=== PATIENT | female | born 1945 | race Caucasian/White ===

== ENCOUNTER → 2016-08-31 | Outpatient (CLI) | payer MEDICARE ==
[2016-08-31 11:36] LABS: Non-African American GFR(MDRD) >60 (>60 ml/min/1.73 sqM)
== END ==
LOC: LABWHC1 10:41
PROVIDERS: ATTEND Internal Medicine
DX: E27.8 Other specified disorders of adrenal gland (principal)
CPT/HCPCS: 36415; 82565

== ENCOUNTER → 2016-09-08 | Outpatient (CLI) | payer MEDICARE ==
--- NOTE | 2016-09-08 09:25 | CT ---
EXAMINATION TYPE: CT abdomen wo con DATE OF EXAM: 09/08/2016 8:35 AM COMPARISON: 11/10/2011 HISTORY: 70-year-old female adrenal nodule TECHNIQUE: Contiguous axial scanning of the abdomen without IV contrast. Coronal and sagittal reconst ructions performed. CT DLP: 564.5 mGycm Automated exposure control for dose reduction was used. FINDINGS: The heart is normal size without pericardial effusion. Some strandy atelectasis at the peripheral lef t base. No pleural effusion. Tiny hiatal hernia. Noncontrast appearance of the liver, left adrenal gland, right kidney, spleen, and pancreas show no g ross abnormality. Cholecystectomy clips. Stable small 5 mm fat density lesion posterior mid left kidney suggestive of a small AML rate Redemonstrated 1.5 cm nodule within the right adrenal gland. While this has minimally enlarged from 1 .2 cm on 11/10/2011, and shows density of -8 Hounsfield units compatible with a benign lipid rich adre nal adenoma. Mild apical scarring calcifications within the abdominal aorta. No mesenteric or retroperitoneal lymphadenopathy. No dilated small bowel, free fluid, or free air. No rmal appendix. Mild to moderate stool within the right hemicolon without pericolonic inflammatory jose nge. 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 No osseous destructive process. IMPRESSION: THE RIGHT ADRENAL GLAND NODULE HAS ENLARGED SLIGHTLY FROM 11/10/2011 MEASURING 1.5 CM VERSUS 1.2 CM, P REVIOUSLY. HOWEVER, IT SHOWS A DENSITY OF NEGATIVE 8 HOUNSFIELD UNITS IN KEEPING WITH A BENIGN LIPID RICH ADRENAL ADENOMA.
== END | disposition home or self-care (01) ==
LOC: RADCTMAIN 08:10
PROVIDERS: ATTEND Internal Medicine
DX: E27.8 Other specified disorders of adrenal gland (principal)
CPT/HCPCS: 74150

== ENCOUNTER → 2016-12-21 | Outpatient (CLI) | payer MEDICARE ==
--- NOTE | 2016-12-22 06:40 | BD ---
EXAMINATION TYPE: MG DEXA axial skeleton. DATE OF EXAM: 12/21/2016 COMPARISON: NONE CLINICAL HISTORY: Postmenopausal female. Screening. Height: 64 Weight: 220.5 FRAX RISK QUESTIONS: Alcohol (3 or more units per day): no Family History (Parent hip fracture): no Glucocorticoids (More than 3mos): no (Ex: prednisone, prednisolone, methylprednisolone, dexamethasone, and hydrocortisone). History of Fracture in Adulthood: no Secondary Osteoporosis: 1. Type 1 Diabetes: no 2. Hyperthyroidism: no 3. Menopause before 45: no 4. Malnutrition: no 5. Chronic liver disease: no Rheumatoid Arthritis: no Current Tobacco Use: no RISK FACTORS HISTORY OF: Hip Fracture (Right/Left): no Spine Fracture: no History of Wrist Fracture: no Surgery to Spine/Hip(right/left)/Wrist (right/left): no Family History of Osteoporosis: Active: no Diet low in dairy products/other sources of calcium: no Postmenopausal woman: age 50 Lost more than 2 inches in height since high school: no Frequent falls: no Poor Health: no Hyperparathyroidism: no Adrenal Insufficiency: no MEDICATIONS: heart meds, cholesterol meds, water pill, blood pressure meds, vit d, b12 , water pill x anax, gout pill Additional History: EXAM MEASUREMENTS: Bone mineral densitometry was performed using the [employer] System. Bone mineral density as measured about the Lumbar spine is: ----- L1-L4(G/cm2): 1.297 T Score Values are as follows: ----- L2: 0.7 ----- L3: 1.7 ----- L4: 1.1 ----- L1-L4: 1.0 Bone mineral density has baseline Bone mineral density about the R hip (g/cm2): 1.084 Bone mineral density about the L hip (g/cm2): 1.071 T Score values are as follows: -----R Neck: 0.3 -----L Neck: 0.2 -----R Total: 0.8 -----L Total: 0.9 Bone mineral density baseline IMPRESSION: Normal (Values between +1 and -1 indicate normal bone mass). Consider repeating this study in 5 year s or sooner if there is some new clinical indication. NOTE: T-SCORE=SD OF THE YOUNG ADULT MEAN.
--- NOTE | 2016-12-22 14:54 | MM ---
Reason for exam: screening (asymptomatic). Last mammogram was performed 1 year and 6 months ago. History: Patient is postmenopausal. Family history of breast cancer in mother at age 60. Physical Findings: A clinical breast exam by your physician is recommended on an annual basis and results should be correlated with mammographic findings. MG Screening Mammo w CAD Bilateral CC and MLO view(s) were taken. Prior study comparison: June 26, 2015, right breast MG 3d diag mammo w/cad RT. December 16, 2014, bilateral MG screening mammo w CAD. The breast tissue is almost entirely fat. Finding: There is a 5 mm high density, circumscribed round mass located 6 cm from the nipple in the right breast, more apparent on exam. There is a chronic nodularity in the right breast, stable. New finding since June 26, 2015 and December 16, 2014. ASSESSMENT: Incomplete: need additional imaging evaluation, BI-RAD 0 RECOMMENDATION: Special view mammogram of the right breast. If lesion persists on supplemental views, image directed ultrasound is recommended. [facility] will attempt to contact patient to return for supplemental views and ultrasound if indicated.
== END | disposition home or self-care (01) ==
LOC: RADMAMWWP 08:54
PROVIDERS: ATTEND Internal Medicine
DX: Z12.31 Encounter for screening mammogram for malignant neoplasm of breast (principal); R92.2 Inconclusive mammogram
CPT/HCPCS: 77080; G0202

== ENCOUNTER → 2016-12-30 | Outpatient (CLI) | payer MEDICARE ==
--- NOTE | 2017-01-02 07:29 | MM ---
Reason for exam: additional evaluation requested from abnormal screening. Last mammogram was performed less than 1 month ago. History: Patient is postmenopausal. Family history of breast cancer in mother at age 60. Physical Findings: Nurse did not find any significant physical abnormalities on exam. MG Work Up Mamm w CAD RT Spot compression CC, spot compression MLO, and ML view(s) were taken of the right breast. Prior study comparison: December 21, 2016, bilateral MG screening mammo w CAD. There is chronic nodularity in the right breast, not significantly changed from 2008. These results were verbally communicated with the patient and result sheet given to the patient on 12/30/16. ASSESSMENT: Benign, BI-RAD 2 RECOMMENDATION: Return to routine screening mammogram schedule for both breasts.
== END | disposition home or self-care (01) ==
LOC: RADMAMWWP 13:42
PROVIDERS: ATTEND Internal Medicine
DX: R92.8 Other abnormal and inconclusive findings on diagnostic imaging of breast (principal)

== ENCOUNTER → 2018-08-02 | Outpatient (CLI) | payer MEDICARE ==
--- NOTE | 2018-08-03 10:01 | MM ---
Reason for exam: screening (asymptomatic). Last mammogram was performed 1 year and 7 months ago. History: Patient is postmenopausal. Family history of breast cancer in mother at age 60. Physical Findings: A clinical breast exam by your physician is recommended on an annual basis and results should be correlated with mammographic findings. MG Screening Mammo w CAD Bilateral CC and MLO view(s) were taken. XCCL view(s) were taken of the right breast. Prior study comparison: December 30, 2016, right breast MG work up mamm w CAD RT. December 21, 2016, bilateral MG screening mammo w CAD. No significant changes when compared with prior studies. ASSESSMENT: Benign, BI-RAD 2 RECOMMENDATION: Routine screening mammogram of both breasts in 1 year.
== END | disposition home or self-care (01) ==
LOC: RADMAMWWP 09:39
PROVIDERS: ATTEND Internal Medicine
DX: Z12.31 Encounter for screening mammogram for malignant neoplasm of breast (principal)
CPT/HCPCS: 77067

== ENCOUNTER → 2019-10-28 | Outpatient (CLI) | payer MEDICARE ==
--- NOTE | 2019-10-28 17:07 | CT ---
EXAMINATION TYPE: CT abdomen wo/w con DATE OF EXAM: 10/28/2019 COMPARISON: 09/08/2016 HISTORY: Right sided pain with distentsion CT DLP: 1776.7 mGycm Automated exposure control for dose reduction was used. CONTRAST: Performed without and with IV Contrast, patient injected with 100 mL of Isovue 300. There is oral contrast also. FINDINGS: The lung bases are clear. There is no pleural effusion. Heart size is normal. There is no pericardial effusion. Liver shows no focal defect. Spleen appears normal. There is no pancreatic mass. There are clips from cholecystectomy. Stomach is intact. There is 1.5 cm low-density right adrenal mass unchanged and consistent with benign disease.. Kidneys have normal size. There is no hydronephrosis. Ureters are not dilated. There is no evidence of renal calculus. Delayed images show normal renal excretion. There is no retroperitoneal adenopathy. There is no evidence of a renal mass. There is no ascites. There is normal contrast opacification of the santhosh wel. I see no evidence of a bowel obstruction. Lumbar vertebra have normal alignment. There is mild narrowing of L4-5 disc. There is mild spurring o f the endplates. I see no bony destructive process. There are few diverticula in the visualized left colon. The appendix appears normal and appears lateral. IMPRESSION: No acute abnormality of the abdomen. Minimal colonic diverticulosis. Normal appendix. No adverse archuleta ge compared to old exam.
== END | disposition home or self-care (01) ==
LOC: RADCTMAIN 15:23
PROVIDERS: ATTEND Family Medicine
DX: K57.30 Diverticulosis of large intestine without perforation or abscess without bleeding (principal)
CPT/HCPCS: 82565; 84520; 74170; 36415; Q9967; 80053; 80061; 81001; 82150; 82306; 82550; 83615; 83690; 83735; 83880; 84443; 84484; 84550; 85379; 86038; 86039; 87086

== ENCOUNTER → 2019-12-18 | Outpatient (CLI) | payer MEDICARE ==
[2019-12-18 15:21] LABS: HCT 40.3 % (34.0-46.0); HGB 13.7 gm/dL (11.4-16.0); MCH 29.6 pg (25.0-35.0); MCHC 34.1 g/dL (31.0-37.0); MCV 86.8 fL (80.0-100.0); Mean Platelet Volume 7.1; Platelet Count 146 k/uL (150-450); RBC 4.64 m/uL (3.80-5.40); RDW 14.5 % (11.5-15.5); WBC 6.5 k/uL (3.8-10.6)
[2019-12-18 15:39] LABS: Potassium 4.4 mmol/L (3.5-5.1)
== END | disposition home or self-care (01) ==
LOC: LABPAT 14:37
PROVIDERS: ATTEND Internal Medicine Interventional Cardiology
DX: Z01.818 Encounter for other preprocedural examination (principal); R94.39 Abnormal result of other cardiovascular function study
CPT/HCPCS: 36415; 80051; 82565; 84520; 85027

== ENCOUNTER 2019-12-24 10:52 | Day surgery (SDC) | payer MEDICARE ==
[2019-12-19 09:37] VITALS: BMI 37.4
[~2019-12-24 10:52] MED LIST: ALPRAZolam 0.25 MG TAB PO PRN; ALPRAZolam 0.5 MG TAB PO PRN; ASPIRIN 325 MG TAB PO ONE; ATORVASTATIN 80 MG TAB PO ONE; NITROGLYCERIN SL TABS 0.4 MG TAB SUBLINGUAL PRN; SODIUM CHLORIDE 0.9% 1,000 ML in EMPTY BAG 1 BAG IV ONE
[2019-12-24] MEDS ORDERED: SODIUM CHLORIDE 0.9% 1,000 ML IV ONE (11:17)
[2019-12-24 11:18] VITALS: TEMP 98.2
[2019-12-24] MEDS ORDERED: LIDOCAINE 1% INJ 10MG/ML (20 ML MDV) ONE (11:20)
[2019-12-24] MEDS ORDERED: HEPARIN SODIUM 1,000 UN/ML (10ML VL) ONE (11:20)
[2019-12-24] MEDS ORDERED: fentaNYL (PF) 50 MCG/ML 2 ML AMP ONE (11:20)
[2019-12-24] MEDS ORDERED: VERAPAMIL 2.5 MG/ML 2 ML AMP ONE (11:20)
[2019-12-24] MEDS ORDERED: fentaNYL (PF) 50 MCG/ML 2 ML AMP IV ONE (11:39)
[2019-12-24] MEDS ORDERED: LIDOCAINE 1% INJ 10MG/ML (20 ML MDV) SQ ONE (11:41)
[2019-12-24] MEDS ORDERED: MIDAZOLAM 2 MG/2 ML VIAL IV ONE (11:41)
[2019-12-24] MEDS ORDERED: IOPAMIDOL-370 100ML BTL INJ ONE (11:52)
[2019-12-24] MEDS ORDERED: RX INFO: IV CONTRAST WAS GIVEN 1 EACH MISC MISCELLANE PRN (12:05)
[2019-12-24] MEDS ORDERED: ALPRAZolam 0.5 MG TAB PO PRN (12:06)
[2019-12-24] MEDS ORDERED: SODIUM CHLORIDE 0.9% 1,000 ML IV SCH (12:15)
--- NOTE | 2019-12-24 12:19 | CC ---
CARDIAC CATHETERIZATION REPORT Mrs. Barney is a 74-year-old female with known history of hypertension, hyperlipidemia, who has been complaining of dyspnea on exertion, peripheral edema and a vague sensation in the chest. She underwent a myocardial perfusion imaging that revealed a partial reversible anterior wall defect. In view of that, recommendation made regarding cardiac catheterization. The procedures, risks, and complications were discussed with the patient, who is in full understanding and agreement. PROCEDURE: Patient was brought to research lab assistant in a fasting semi-sedated state after receiving fentanyl and Benadryl and achieving moderate conscious sedated state. Using Xylocaine anesthesia and Seldinger technique, a 6-Vincentian sheath was introduced in the right radial artery. Selective right and left coronary angiography performed using 5-Vincentian 3.5 bend right and left Arcelia catheter. Multiple views of the coronary artery including hemiaxial views were obtained. The right Arcelia catheter was used to cross the aortic valve and left ventricular end-diastolic pressure was calculated. Following that, catheter and sheath were removed. Hemostasis was obtained with deployment of TR band. There was no immediate complication. Patient is returned to her room in stable condition. Of note, the patient received 5000 units of intravenous heparin as well as intra-arterial verapamil. FINDINGS: LEFT MAIN: This is a short size vessel, large in caliber, bifurcating into left circumflex, left anterior descending artery. Left main coronary artery has no evidence of high-grade stenosis. LEFT ANTERIOR DESCENDING ARTERY: This is a large-sized vessel, tapers down in distal third, giving rise to a moderately sized diagonal branch. After the diagonal branch, there is a 10% to 20% plaque. The rest of the vessel has no high-grade stenosis. LEFT CIRCUMFLEX: This is a nondominant vessel, giving rise to 3 obtuse marginal branch, moderate in caliber. The left circumflex as well as branches have no evidence of obstructive coronary artery disease. RIGHT CORONARY ARTERY: This is a large dominant vessel, bifurcating distally into PDA and posterolateral segment and branches. The right PDA reaches toward the inferoapical wall. The right coronary artery as well as branches have no evidence of obstructive coronary artery disease. LEFT VENTRICULOGRAM: Left ventriculogram was not performed. HEMODYNAMICS: There was no gradient across the aortic valve. The left ventricular end- diastolic pressure was 14-18 mmHg. CONCLUSION: 1. 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 2. Right dominance. RECOMMENDATION: In view of finding anatomy, I recommend continue medical therapy with aggressive coronary risk modifications being initiated. Those findings and recommendations were discussed with the patient her family and they are in full understanding and agreement. Duration of procedure is 16 minutes. MMODL / IJN: [id number] /
--- NOTE | 2019-12-24 12:22 | LTR ---
DATE OF SERVICE: 12/24/2019 RE: SavitaAnnette Dear Dr. Phelan: I had the pleasure to perform cardiac catheterization on Mrs. Barney at [facility] on December 24, 2019 and a full copy of the procedure note will be forwarded to you. In brief, she was found to have no evidence of high-grade stenosis and based on those findings, I have recommended continue medical therapy with aggressive risk modifications being initiated. Thank you again for allowing me to participate in this patient's personal care. Please feel free to call for any questions. Sincerely yours, Reggie Rubi MD MMJOSE CL / SALLYN: [id number] /
[2019-12-24 12:29] VITALS: RESP 16
[2019-12-24 16:38] VITALS: BP 145/76; PULSE 68
[2019-12-25] MEDS ORDERED: PANTOPRAZOLE 40 MG TABLET PO SCH (07:30)
[2019-12-25] MEDS ORDERED: NON FORMULARY DRUG (Ubidecarenone [Co Q-10] 400 MG) PO SCH (09:00)
[2019-12-25] MEDS ORDERED: LOSARTAN 50 MG TAB PO SCH (09:00)
[2019-12-25] MEDS ORDERED: METOPROLOL SUCCINATE (ER) 100 MG TAB.ER.24H PO SCH (09:00)
[2019-12-25] MEDS ORDERED: ASPIRIN 81 MG PO SCH (09:00)
[2019-12-25] MEDS ORDERED: PRAVASTATIN SODIUM 20 MG TAB PO SCH (09:00)
== END 2019-12-24 16:38 | disposition home or self-care (01) ==
LOC: CATHCVL 10:52
PROVIDERS: ATTEND Internal Medicine Interventional Cardiology
DX: I25.10 Atherosclerotic heart disease of native coronary artery without angina pectoris (principal); R06.09 Other forms of dyspnea; R09.89 Other specified symptoms and signs involving the circulatory and respiratory systems; R94.39 Abnormal result of other cardiovascular function study; R07.9 Chest pain, unspecified; I10 Essential (primary) hypertension; E78.2 Mixed hyperlipidemia; R60.0 Localized edema; I08.1 Rheumatic disorders of both mitral and tricuspid valves; Z72.0 Tobacco use; Z79.899 Other long term (current) drug therapy; Z79.82 Long term (current) use of aspirin; Z82.49 Family history of ischemic heart disease and other diseases of the circulatory system
CPT/HCPCS: 93458; C1769; C1894; J2250; J2001; J3010; J1644; Q9967

== ENCOUNTER 2020-02-19 08:14 | Day surgery (SDC) | payer MEDICARE ==
[2020-02-14 08:59] VITALS: BMI 36.6
[~2020-02-19 08:14] MED LIST changes: -ALPRAZolam 0.25 MG TAB PO PRN; -ALPRAZolam 0.5 MG TAB PO PRN; -ASPIRIN 325 MG TAB PO ONE; -ATORVASTATIN 80 MG TAB PO ONE; +LACTATED RINGERS 1,000 ML IV SCH; +LIDOCAINE 1% (10MG/ML) FOR IV START INTRADERMA PRN; -NITROGLYCERIN SL TABS 0.4 MG TAB SUBLINGUAL PRN; -SODIUM CHLORIDE 0.9% 1,000 ML in EMPTY BAG 1 BAG IV ONE
[2020-02-19 08:38] VITALS: TEMP 97.8
[2020-02-19] MEDS ORDERED: LIDOCAINE 1% (10MG/ML) FOR IV START INTRADERMA ONE (08:40)
[2020-02-19] MEDS ORDERED: PROPOFOL 10 MG/ML 20 ML VIAL IV ONE (09:14)
[2020-02-19] MEDS ORDERED: LIDOCAINE 1% INJ 10MG/ML (20 ML MDV) ONE (09:14)
--- NOTE | 2020-02-19 09:33 | P.PCN ---
Date of Procedure: 02/19/20 Procedure(s) Performed: BRIEF HISTORY: Patient is a 73-year-old pleasant female scheduled for an elective colonoscopy as a part of value should of intermittent rectal bleeding for the last 6 months duration. PROCEDURE PERFORMED: Colonoscopy with snare polypectomy. PREOPERATIVE DIAGNOSIS: Intermittent rectal bleeding IV sedation per Anesthesia. PROCEDURE: After informed consent was obtained, the patient, was brought into the endoscopy unit. IV sedation was administered by Anesthesia under continuous monitoring. Digital rectal examination was normal. Initially the Olympus CF-160 flexible video colonoscope was then inserted in the rectum, gradually advanced into the cecum without any difficulty. Careful examination was performed as the scope was gradually being withdrawn. Ileocecal valve and the appendiceal orifice were visualized and appeared normal. Prep was excellent. Mucosa of the cecum, ascending colon, appeared normal in the transverse colon there was a 5 mm sessile polyp removed by snare polypectomy. Rest of the transverse colon, descending colon, sigmoid colon, and rectum appeared normal. Scattered left- sided diverticulosis seen. Retroflexion was performed in the rectum and grade 2 internal hemorrhoids were seen. The patient tolerated the procedure well. IMPRESSION: 5 mm transverse colon polyp status post polypectomy Scattered sigmoid diverticulosis Grade 2 internal hemorrhoids RECOMMENDATIONS: Findings of this examination were discussed with the patient She was advised to follow with the biopsy results. She will continue with a high-fiber diet and take fiber supplements on a regular basis. If the biopsy shows an adenoma she can have a repeat colonoscopy in 5 years
[2020-02-19 10:00] VITALS: BP 145/89; PULSE 75; RESP 18
== END 2020-02-19 10:21 | disposition home or self-care (01) ==
LOC: ORWHC2ENDO 08:14
PROVIDERS: ATTEND Internal Medicine Gastroenterology
DX: D12.3 Benign neoplasm of transverse colon (principal); K57.30 Diverticulosis of large intestine without perforation or abscess without bleeding; K64.1 Second degree hemorrhoids; I10 Essential (primary) hypertension; I25.10 Atherosclerotic heart disease of native coronary artery without angina pectoris; E78.5 Hyperlipidemia, unspecified; K21.9 Gastro-esophageal reflux disease without esophagitis; E66.9 Obesity, unspecified; Z79.899 Other long term (current) drug therapy; Z97.4 Presence of external hearing-aid; Z68.37 Body mass index [BMI] 37.0-37.9, adult
CPT/HCPCS: 88305; 45385; J2001; J2704

== ENCOUNTER → 2021-01-28 | Outpatient (CLI) | payer MEDICARE ==
[2021-01-29 17:05] LABS: African American GFR (CKD) 62.9 (60.0-200.0); Anion Gap 17.9 mmol/L (4.00-12.00); Calcium 9.8 mg/dL (8.7-10.3); Carbon Dioxide 23.1 mmol/L (21.6-31.8); Non-African American GFR(CKD) 54.3 (60.0-200.0); Potassium 4.5 mmol/L (3.5-5.5)
== END | disposition home or self-care (01) ==
LOC: LABWHC1 14:04
PROVIDERS: ATTEND Nurse Practitioner Adult Health
DX: I10 Essential (primary) hypertension (principal)
CPT/HCPCS: 36415; 80048

== ENCOUNTER → 2021-08-23 | Outpatient (CLI) | payer MEDICARE ==
[2021-08-23 20:16] LABS: ALT 21 U/L (8-44); AST 22 U/L (13-35); African American GFR (CKD) 62.9 (60.0-200.0); Albumin 4.4 g/dL (3.8-4.9); Albumin/Globulin Ratio 1.57 (1.60-3.17); Alkaline Phosphatase 75 U/L (41-126); Blood Urea Nitrogen 13.5 mg/dL (9.0-27.0); Calcium 9.6 mg/dL (8.7-10.3); Carbon Dioxide 22.9 mmol/L (20.0-27.5); Chloride 100 mmol/L (96-109); Chol/HDL Ratio 3.15 Ratio; Globulin 2.8 g/dL (1.6-3.3); Glucose 91 mg/dL (70-110); LDL Cholesterol,Calculated 93.6 mg/dL (0.0-131.0); Non-African American GFR(CKD) 54.3 (60.0-200.0); Sodium 135 mmol/L (135-145); Total Protein 7.2 g/dL (6.2-8.2)
== END | disposition home or self-care (01) ==
LOC: LABWHC1 12:51
PROVIDERS: ATTEND Nurse Practitioner Adult Health
DX: I10 Essential (primary) hypertension (principal); E78.2 Mixed hyperlipidemia
CPT/HCPCS: 36415; 80053; 80061

== ENCOUNTER → 2022-09-21 | Outpatient (CLI) | payer MEDICARE ==
[2022-09-21 15:31] LABS: ALT 19 U/L (8-44); AST 22 U/L (13-35); African American GFR (CKD) 62.5 (60.0-200.0); Albumin 4.5 g/dL (3.8-4.9); Alkaline Phosphatase 73 U/L (41-126); Blood Urea Nitrogen 12.7 mg/dL (9.0-27.0); Calcium 9.8 mg/dL (8.7-10.3); Carbon Dioxide 27.6 mmol/L (20.0-27.5); Chloride 102 mmol/L (96-109); Globulin 2.5 g/dL (1.6-3.3); Glucose 85 mg/dL (70-110); LDL Cholesterol,Calculated 87.2 mg/dL (0.0-131.0); Non-African American GFR(CKD) 53.9 (60.0-200.0); Potassium 4.2 mmol/L (3.5-5.5); Sodium 141 mmol/L (135-145)
[2022-09-21 16:06] LABS: HCT 39.1 % (37.2-46.3); HGB 12.9 g/dL (12.0-15.0); MCH 29.3 pg (27.0-32.0); MCV 88.7 fL (80.0-97.0); Mean Platelet Volume 9.7 fL (9.5-12.2); NRBC Per 100 WBC 0 /100 WBCS (0.0-0.0); Platelet Count 173 X 10*3/uL (140-440); RBC 4.41 X 10*6/uL (4.10-5.20); RDW 14.4 % (11.5-14.5); WBC 7.96 X 10*3/uL (4.50-10.00)
== END | disposition home or self-care (01) ==
LOC: LABWHC1 10:56
PROVIDERS: ATTEND Nurse Practitioner Adult Health
DX: I10 Essential (primary) hypertension (principal); K62.5 Hemorrhage of anus and rectum; E78.2 Mixed hyperlipidemia
CPT/HCPCS: 36415; 80053; 80061; 85027

== ENCOUNTER → 2023-06-12 | Outpatient (CLI) | payer MEDICARE ==
[2023-06-12 21:13] LABS: ALT 17 U/L (8-44); AST 18 U/L (13-35); Albumin 4.5 g/dL (3.8-4.9); Albumin/Globulin Ratio 1.73 Ratio (1.60-3.17); Alkaline Phosphatase 73 U/L (41-126); Calcium 9.7 mg/dL (8.7-10.3); Carbon Dioxide 28.7 mmol/L (21.6-31.8); Chloride 100 mmol/L (96-109); Chol/HDL Ratio 3.11 Ratio; Globulin 2.6 g/dL (1.6-3.3); Glucose 85 mg/dL (70-110); LDL Cholesterol,Calculated 107.7 mg/dL (0.0-131.0); Potassium 4.1 mmol/L (3.5-5.5); Sodium 140 mmol/L (135-145); Total Bilirubin 0.8 mg/dL (0.3-1.2); Total Protein 7.1 g/dL (6.2-8.2)
== END | disposition home or self-care (01) ==
LOC: LABWHC1 13:19
PROVIDERS: ATTEND Nurse Practitioner Adult Health
DX: I10 Essential (primary) hypertension (principal); E78.2 Mixed hyperlipidemia
CPT/HCPCS: 36415; 80053; 80061

== ENCOUNTER → 2024-01-18 | Outpatient (CLI) | payer MEDICARE ==
[2024-01-19 01:49] LABS: ALT 15 U/L (8-44); AST 23 U/L (13-35); Chol/HDL Ratio 2.76 Ratio; LDL Cholesterol,Calculated 95.4 mg/dL (0.0-131.0)
== END | disposition home or self-care (01) ==
LOC: LABWHC1 15:33
PROVIDERS: ATTEND Internal Medicine Interventional Cardiology
DX: E78.2 Mixed hyperlipidemia (principal)
CPT/HCPCS: 36415; 80061; 84450; 84460

== ENCOUNTER → 2024-09-14 | Outpatient (CLI) | payer MEDICARE ==
[2024-09-14 14:16] LABS: ALT 15 U/L (8-44); AST 21 U/L (13-35); Albumin 4.2 g/dL (3.8-4.9); Albumin/Globulin Ratio 1.75 Ratio (1.60-3.17); Alkaline Phosphatase 67 U/L (41-126); Blood Urea Nitrogen 16.6 mg/dL (9.0-27.0); Calcium 9.7 mg/dL (8.7-10.3); Carbon Dioxide 27.7 mmol/L (21.6-31.8); Chloride 102 mmol/L (96-109); Chol/HDL Ratio 3.26 Ratio; Globulin 2.4 g/dL (1.6-3.3); Glucose 93 mg/dL (70-110); LDL Cholesterol,Calculated 103.2 mg/dL (0.0-131.0); Sodium 139 mmol/L (135-145); Total Bilirubin 0.8 mg/dL (0.3-1.2); Total Protein 6.6 g/dL (6.2-8.2)
== END | disposition home or self-care (01) ==
LOC: LABWHC1 08:33
PROVIDERS: ATTEND Internal Medicine Interventional Cardiology
DX: I10 Essential (primary) hypertension (principal); E78.2 Mixed hyperlipidemia
CPT/HCPCS: 36415; 80053; 80061